=== PATIENT | male | born 1990 | race Two or more races ===

== ENCOUNTER 2019-06-17 19:44 | Emergency (ER) | payer SELFPAY ==
[~2019-06-17] VITALS: Ht 167.6 cm; Wt 68.2 kg
[2019-06-17] MEDS ORDERED: morphine 4 MG/ML inj SYRINge IV ONE (20:30)
[2019-06-17] MEDS ORDERED: ondansetron/PF 4mg/2ml inj IV ONE (20:30)
[2019-06-17] MEDS ORDERED: propofol 10mg/ml 20ml vial IV ONE (20:30)
[2019-06-17 21:23] VITALS: BP 127/75
[2019-06-17] MEDS ORDERED: IBUP-1986 PO (21:43)
[2019-06-17] MEDS ORDERED: HYDR-4383 PO (21:43)
== END 2019-06-17 23:10 | disposition home or self-care (01) ==
LOC: ER 19:47
DX: S43.085A Other dislocation of left shoulder joint, initial encounter (principal); X50.0XXA Overexertion from strenuous movement or load, initial encounter; Y93.89 Activity, other specified; Y92.89 Other specified places as the place of occurrence of the external cause; Y99.9 Unspecified external cause status
CPT/HCPCS: 23650; 73030; 94760; 96374; 96375; 99285; J2270; J2405; J2704

== ENCOUNTER 2019-08-23 08:35 | Emergency (ER) | payer OTHER ==
[~2019-08-23] VITALS: Ht 167.6 cm; Wt 68.0 kg
[~2019-08-23 08:35] MED LIST: HYDR-4383 PO; IBUP-1986 PO
[2019-08-23] MEDS ORDERED: ondansetron/PF 4mg/2ml inj IV ONE (09:15)
[2019-08-23] MEDS ORDERED: propofol 1000mg/100ml bottle 100 ML IV ONE (10:08)
--- NOTE | 2019-08-23 10:30 | NUR ---
DR RICHEY ADMINISTERED 23ML EQUALING 230MG OF PROPOFOL
[2019-08-23] MEDS ORDERED: IBUP-1986 PO (10:50)
[2019-08-23] MEDS ORDERED: TRAM50TA2 PO (10:50)
[2019-08-23 11:38] VITALS: BP 133/100
== END 2019-08-23 11:38 | disposition home or self-care (01) ==
LOC: ER 08:36
DX: S43.102A Unspecified dislocation of left acromioclavicular joint, initial encounter (principal); F10.99 Alcohol use, unspecified with unspecified alcohol-induced disorder; Z98.890 Other specified postprocedural states; X50.0XXA Overexertion from strenuous movement or load, initial encounter; Y93.89 Activity, other specified; Y92.89 Other specified places as the place of occurrence of the external cause; Y99.8 Other external cause status; Y90.9 Presence of alcohol in blood, level not specified
CPT/HCPCS: 23650; 73020; 73030; 96374; 99152; 99285; J2405; J2704